=== PATIENT | male | born 1995 | race African-American/Black ===

== ENCOUNTER 2017-07-08 12:26 | Emergency (ER) | payer MEDICAID, OTHER ==
[~2017-07-08] VITALS: Ht 190.5 cm; Wt 122.7 kg
[2017-07-08 12:26] VITALS: BP 142/62
== END 2017-07-08 15:53 | disposition left against medical advice (07) ==
LOC: M ED 12:26
DX: R21 Rash and other nonspecific skin eruption (principal); Z53.21 Procedure and treatment not carried out due to patient leaving prior to being seen by health care provider

== ENCOUNTER → 2017-09-25 | Outpatient (REF) | payer OTHER ==
[2017-09-25 21:54] LABS: CHLAMYDIA DNA AMPLIFICATION NEGATIVE (NEGATIVE); GC DNA AMPLIFICATION NEGATIVE (NEGATIVE)
== END ==
LOC: M LAB REF 16:54
DX: R30.0 Dysuria (principal)
CPT/HCPCS: 87591

== ENCOUNTER → 2017-09-29 | Outpatient (REF) | payer OTHER ==
[2017-09-29 21:32] LABS: HIV 1&2 SCREEN CENTAUR NEGATIVE (NEGATIVE)
[2017-09-29 22:12] LABS: CHLAMYDIA DNA AMPLIFICATION NEGATIVE (NEGATIVE); GC DNA AMPLIFICATION NEGATIVE (NEGATIVE)
[2017-10-01 10:14] LABS: HSV TYPE I IgG SPECIFIC 1.03 index (0.00-0.90); HSV TYPE II IgG SPECIFIC <0.91 index (0.00-0.90)
== END ==
LOC: M SFHCPLAZ 13:22
DX: Z71.1 Person with feared health complaint in whom no diagnosis is made (principal)
CPT/HCPCS: 86695

== ENCOUNTER 2018-08-27 15:37 | Emergency (ER) | payer OTHER ==
[~2018-08-27] VITALS: Ht 190.5 cm; Wt 120.5 kg
[2018-08-27 15:37] VITALS: BP 144/65
[2018-08-27] MEDS ORDERED: VENTAER (15:41)
== END 2018-08-27 16:50 | disposition home or self-care (01) ==
LOC: M ED 15:37
DX: J45.909 Unspecified asthma, uncomplicated (principal); Z79.899 Other long term (current) drug therapy

== ENCOUNTER 2019-02-03 16:49 | Emergency (ER) | payer OTHER ==
[~2019-02-03] VITALS: Ht 190.5 cm; Wt 126.4 kg
[~2019-02-03 16:49] MED LIST: VENTAER
[2019-02-03 18:52] LABS: BASO # 0.1 10^3/uL (0.0-0.2); BASO % 0.5 % (0.0-1.0); EOS # 0.2 10^3/uL (0.0-0.50); EOS % 2.1 % (0.0-3.0); HEMATOCRIT 45.8 % (42.0-52.0); HEMOGLOBIN 15.8 g/dl (13.5-17.5); LYMPH # 2.4 10^3/uL (1.5-6.5); LYMPH % 25.1 % (24.0-44.0); MEAN CORPUSCULAR HGB CONC 34.5 g/dl (32.0-36.5); MEAN CORPUSCULAR VOLUME 84.2 fl (80.0-96.0); MONO # 0.8 10^3/uL (0.0-0.8); MONO % 7.9 % (0.0-5.0); NEUTROPHILS # 6.1 10^3/uL (1.8-7.7); NEUTROPHILS % 64.2 % (36.0-66.0); PLATELET COUNT, AUTOMATED 264 10^3/uL (150-450); RED BLOOD COUNT 5.44 10^6/uL (4.30-6.10); WHITE BLOOD COUNT 9.5 10^3/uL (4.0-10.0)
--- NOTE | 2019-02-03 19:25 | REP ---
PA and lateral chest: Comparison is 06/09/2016. The lung wilder are clear. The cardiac size is normal. The clair, mediastinum, and skeletal structures are unremarkable. Impression: Negative PA and lateral chest. There is no interval change. Electronically Signed by David Medina MD 02/03/2019 07:17 P
[2019-02-03 19:26] LABS: ALBUMIN 4.1 GM/DL (3.2-5.2); ALT/SGPT 32 U/L (12-78); BILIRUBIN,DIRECT 0.2 MG/DL (0.0-0.2); BLOOD UREA NITROGEN 15 MG/DL (7-18); CALCIUM LEVEL 9.1 MG/DL (8.5-10.1); CARBON DIOXIDE LEVEL 30 MEQ/L (21-32); CHLORIDE LEVEL 105 MEQ/L (98-107); GLOMERULAR FILTRATION RATE > 60.0 (>60); GLUCOSE, FASTING 73 MG/DL (70-100); LIPASE 129 U/L (73-393); POTASSIUM SERUM 4.2 MEQ/L (3.5-5.1); SODIUM LEVEL 139 MEQ/L (136-145); TOTAL PROTEIN 7.3 GM/DL (6.4-8.2)
--- NOTE | 2019-02-03 20:13 | REPVR ---
EXAM: US Abdomen Limited, Right Upper Quadrant EXAM DATE/TIME: 02/03/2019 7:36 PM CLINICAL HISTORY: 23 years old, male; Abdominal pain; Additional info: Ruq/right chest pain TECHNIQUE: Imaging protocol: Real-time ultrasound of the abdomen with image documentation. Examination was focused on the right upper quadrant. COMPARISON: No relevant prior studies available. FINDINGS: Liver: Normal. No masses. Gallbladder: Gallbladder is contracted. Of note, the patient was not fasting. Negative sonographic Lynn's sign. Common bile duct: Common bile duct measures 2.5 mm. Pancreas: Pancreas largely obscured by overlying bowel gas Right kidney: Right kidney measures 11.7 x 6.8 x 6.7 cm. IMPRESSION: Gallbladder is contracted. Of note, the patient was not fasting. Negative sonographic Lynn's sign. Electronically signed by: Dawson Sorto On 02/03/2019 20:13:08 PM
[2019-02-03 21:00] VITALS: BP 141/80
--- NOTE | 2019-02-03 21:47 | ECGEPIP ---
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
== END 2019-02-03 21:02 | disposition home or self-care (01) ==
LOC: M ED 19:17
DX: R07.89 Other chest pain (principal); I45.4 Nonspecific intraventricular block; J45.909 Unspecified asthma, uncomplicated; Z87.891 Personal history of nicotine dependence

== ENCOUNTER → 2019-08-20 | Outpatient (REF) | payer OTHER ==
[2019-08-20 18:16] LABS: BASO % 0.6 % (0.0-1.0); EOS # 0.1 10^3/uL (0.0-0.5); EOS % 1.8 % (0.0-3.0); HEMATOCRIT 48.2 % (42.0-52.0); HEMOGLOBIN 15.8 g/dl (13.5-17.5); LYMPH # 2.2 10^3/uL (1.5-5.0); LYMPH % 33.7 % (24.0-44.0); MEAN CORPUSCULAR HEMOGLOBIN 27.5 pg (27.0-33.0); MEAN CORPUSCULAR HGB CONC 32.8 g/dl (32.0-36.5); MONO # 0.5 10^3/uL (0.0-0.8); MONO % 7.5 % (0.0-5.0); NEUTROPHILS # 3.7 10^3/uL (1.5-8.5); NEUTROPHILS % 56.2 % (36.0-66.0); PLATELET COUNT, AUTOMATED 261 10^3/uL (150-450); RED BLOOD COUNT 5.74 10^6/uL (4.30-6.10); WHITE BLOOD COUNT 6.5 10^3/uL (4.0-10.0)
[2019-08-20 18:28] LABS: ALBUMIN 4.4 GM/DL (3.2-5.2); ALT/SGPT 42 U/L (12-78); BILIRUBIN,TOTAL 2.5 MG/DL (0.2-1.0); BLOOD UREA NITROGEN 17 MG/DL (7-18); CARBON DIOXIDE LEVEL 27 MEQ/L (21-32); CHLORIDE LEVEL 105 MEQ/L (98-107); CHOLESTEROL LEVEL 178 MG/DL (<200); CHOLESTEROL RISK RATIO 2.781 (<5); CREATININE FOR GFR 0.94 MG/DL (0.70-1.30); FREE T4 0.97 NG/DL (0.76-1.46); GLOMERULAR FILTRATION RATE > 60.0 (>60); GLUCOSE, FASTING 95 MG/DL (70-100); HDL CHOLESTEROL 64 MG/DL (>40); LDL CHOLESTEROL 104 MG/DL (<100); NON-HDL-C 114 MG/DL; POTASSIUM SERUM 4.5 MEQ/L (3.5-5.1); RHEUMATOID FACTOR QUANT 21.8 IU/ML (<15.0); SODIUM LEVEL 140 MEQ/L (136-145); TOTAL PROTEIN 6.9 GM/DL (6.4-8.2); TRIGLYCERIDES LEVEL 51 MG/DL (<150)
[2019-08-20 18:35] LABS: TOTAL 25(OH) VITAMIN D 33.5 NG/ML (30.0-100.0)
[2019-08-20 18:47] LABS: ERYTHROCYTE SEDIMENTATION RATE 3 mm/hr (0-15)
[2019-08-23 14:07] LABS: ANTINUCLEAR ANTIBODIES DIRECT Negative (Negative)
== END ==
LOC: M LAB REF 16:38
PROVIDERS: ATTEND Physician Assistant
DX: Z83.49 Family history of other endocrine, nutritional and metabolic diseases (principal); M25.50 Pain in unspecified joint; J45.990 Exercise induced bronchospasm; E66.09 Other obesity due to excess calories; Z68.34 Body mass index [BMI] 34.0-34.9, adult; Z00.01 Encounter for general adult medical examination with abnormal findings

== ENCOUNTER → 2019-09-23 | Outpatient (REF) | payer OTHER ==
[2019-09-23 17:23] LABS: BILIRUBIN,DIRECT 0.3 MG/DL (0.0-0.2); BILIRUBIN,TOTAL 1.6 MG/DL (0.2-1.0)
[2019-09-23 17:46] LABS: HEPATITIS B SURFACE ANTIGEN NEGATIVE (NEGATIVE)
[2019-09-24 09:22] LABS: HEPATITIS B SURFACE ANTIBODY POSITIVE (POSITIVE)
[2019-09-24 10:01] LABS: HEPATITIS C VIRUS ABY INDEX < 0.0 INDEX (<0.8)
[2019-09-25 08:14] LABS: HEPATITIS A IgG TOTAL Positive (Negative); HEPATITIS B CORE ANTIBODY IGG Negative (Negative)
== END ==
LOC: M LAB REF 16:25
PROVIDERS: ATTEND Physician Assistant
DX: R17 Unspecified jaundice (principal)

== ENCOUNTER → 2019-09-28 | Outpatient (REF) | payer OTHER ==
[2019-09-28 17:35] LABS: C REACTIVE PROTEIN QUANTITATIV < 0.30 MG/DL (0.00-0.30); RHEUMATOID FACTOR QUANT 27.2 IU/ML (<15.0); TOTAL PROTEIN 6.8 GM/DL (6.4-8.2)
[2019-09-30 08:58] LABS: ALBUMIN 4.43 GM/DL (3.29-5.55); ALBUMIN % 65.2 % (55.8-66.1); ALPHA-1-GLOBULIN % 3.6 % (2.9-4.9); ALPHA-1-GLOBULINS 0.24 GM/DL (0.17-0.41); ALPHA-2-GLOBULINS 0.64 GM/DL (0.42-0.99); ALPHA-2-GLOBULINS % 9.4 % (7.1-11.8); BETA-1-GLOBULINS 0.41 GM/DL (0.28-0.60); BETA-2-GLOBULINS 0.33 GM/DL (0.19-0.55); BETA-2-GLOBULINS % 4.8 % (3.2-6.5); GAMMA GLOBULINS 0.75 GM/DL (0.65-1.58)
[2019-10-01 00:06] LABS: ANGIOTENSIN 1 CONVERTING ENZYM 45 U/L (14-82); CYCLIC CITRULLINATED PEPTIDE 12 units (0-19)
== END ==
LOC: M SFHCRHEU 09:50
PROVIDERS: ATTEND Internal Medicine
DX: M25.50 Pain in unspecified joint (principal); R76.8 Other specified abnormal immunological findings in serum

== ENCOUNTER → 2019-10-01 | Outpatient (CLI) | payer OTHER ==
--- NOTE | 2019-10-01 15:35 | REP ---
Clinical: Kyphosis. Technique: AP, lateral, swimmers views of the thoracic spine. Findings: Normal alignment and kyphosis noted. No acute fracture / compression injury or subluxation. Mild scoliosis in the frontal projection cannot be excluded. Lateral view suggests minimal multilevel degenerative changes with subtle endplate sclerosis and minimal spurring. Impression: Minimal degenerative changes cannot be excluded and should be correlated with physical examination and history. Electronically Signed by Spike Dodd MD 10/01/2019 03:26 P
--- NOTE | 2019-10-01 15:37 | REP ---
Clinical: Polyarthralgia. Technique: AP, lateral, bilateral oblique and sunrise views of the right and left knee. Findings: Osseous structures, joint spaces, and surrounding soft tissues appear relatively normal for age. No acute fracture dislocation. No definite effusion. No significant arthritic findings. Impression: Essentially symmetric age-appropriate bilateral knee radiographs. Electronically Signed by Spike Dodd MD 10/01/2019 03:28 P
--- NOTE | 2019-10-01 15:38 | REP ---
Clinical: Nontraumatic hip pain. Technique: Frontal view of the pelvis with neutral and frog lateral views of the right and left hip. Findings: Osseous structures and joint spaces are intact and relatively normal. Hip joints appear symmetric on frontal pelvic radiograph. No acute fracture or dislocation. No evidence for healed injury. Very minimal symmetric increased sclerosis to the acetabular roofs is nonspecific. Surrounding soft tissues are unremarkable. Impression: Symmetric bilateral hip radiograph series. Electronically Signed by Spike Dodd MD 10/01/2019 03:30 P
== END ==
LOC: M RAD 14:35
PROVIDERS: ATTEND Internal Medicine
DX: M40.204 Unspecified kyphosis, thoracic region (principal); M25.50 Pain in unspecified joint

== ENCOUNTER 2019-12-29 11:32 | Emergency (ER) | payer OTHER ==
[~2019-12-29] VITALS: Ht 190.5 cm; Wt 130.2 kg
[2019-12-29 11:33] VITALS: BP 139/67
--- NOTE | 2019-12-29 13:47 | REP ---
LEFT WRIST, FOUR VIEWS: There is no evidence of an acute fracture, dislocation or intrinsic bone disease. IMPRESSION: No fracture or dislocation. Electronically Signed by David Prather MD 12/29/2019 04:44 P
== END 2019-12-29 12:59 | disposition home or self-care (01) ==
LOC: M ED 11:32
DX: M25.532 Pain in left wrist (principal)

== ENCOUNTER → 2020-09-05 | Outpatient (CLI) | payer SELFPAY | LOC: M LABSMTC 09:49 | PROVIDERS: ATTEND Pediatrics | DX: Z20.822 Contact with and (suspected) exposure to COVID-19 (principal) ==

== ENCOUNTER → 2020-11-08 | Outpatient (REF) | payer OTHER | LOC: M LAB REF 13:14 | PROVIDERS: ATTEND Physician Assistant | DX: K52.9 Noninfective gastroenteritis and colitis, unspecified (principal) ==

== ENCOUNTER → 2020-11-29 | Outpatient (REF) | payer OTHER ==
[2020-11-29 16:54] LABS: BASO % 0.4 % (0.0-1.0); EOS # 0.2 10^3/uL (0.0-0.5); EOS % 1.9 % (0.0-3.0); HEMATOCRIT 49.3 % (42.0-52.0); HEMOGLOBIN 16.6 g/dl (13.5-17.5); LYMPH # 2.5 10^3/uL (1.5-5.0); MEAN CORPUSCULAR HEMOGLOBIN 27.4 pg (27.0-33.0); MEAN CORPUSCULAR HGB CONC 33.7 g/dl (32.0-36.5); MEAN CORPUSCULAR VOLUME 81.4 fl (80.0-96.0); MONO # 0.6 10^3/uL (0.0-0.8); MONO % 6.9 % (2.0-8.0); NEUTROPHILS # 5.9 10^3/uL (1.5-8.5); NEUTROPHILS % 63.6 % (36.0-66.0); PLATELET COUNT, AUTOMATED 265 10^3/uL (150-450); RED BLOOD COUNT 6.06 10^6/uL (4.30-6.10); WHITE BLOOD COUNT 9.3 10^3/uL (4.0-10.0)
[2020-11-29 17:57] LABS: ALBUMIN 4.1 GM/DL (3.2-5.2); ALT/SGPT 25 U/L (12-78); AMYLASE 59 U/L (25-115); BILIRUBIN,TOTAL 0.9 MG/DL (0.2-1.0); BLOOD UREA NITROGEN 13 MG/DL (7-18); CALCIUM LEVEL 9.5 MG/DL (8.5-10.1); CARBON DIOXIDE LEVEL 28 MEQ/L (21-32); CHLORIDE LEVEL 106 MEQ/L (98-107); CREATININE FOR GFR 0.84 MG/DL (0.70-1.30); GLOMERULAR FILTRATION RATE > 60.0 (>60); GLUCOSE, FASTING 90 MG/DL (70-100); LIPASE 78 U/L (73-393); POTASSIUM SERUM 4.8 MEQ/L (3.5-5.1); SODIUM LEVEL 139 MEQ/L (136-145); TOTAL PROTEIN 7.2 GM/DL (6.4-8.2)
== END ==
LOC: M LAB REF 15:57
PROVIDERS: ATTEND Physician Assistant
DX: R53.83 Other fatigue (principal); K52.9 Noninfective gastroenteritis and colitis, unspecified

== ENCOUNTER 2020-12-31 07:54 | Emergency (ER) | payer OTHER ==
[~2020-12-31] VITALS: Ht 190.5 cm; Wt 148.5 kg
[2020-12-31 07:54] VITALS: BP 161/84
[2020-12-31] MEDS ORDERED: ONDA4TAB6 PO (09:21)
[2020-12-31] MEDS ORDERED: ONDANSETRON 4 MG ORAL DISINTEGRATING TAB PO ONE (09:25)
[2020-12-31] MEDS ORDERED: IBUPROFEN 600MG TAB PO ONE (09:25)
[2021-01-01] MEDS ORDERED: GNPLIQ60 PO (20:51)
[2021-01-01] MEDS ORDERED: IBUP200C29 PO (20:51)
--- NOTE | 2021-01-06 08:07 | ED PDOC ---
Post-Departure Follow-Up radiology repor tfaxed to Aster Cordova MD January 06, 2021 08:07
== END 2020-12-31 09:30 | disposition home or self-care (01) ==
LOC: M ED 07:54
DX: T50.B95A Adverse effect of other viral vaccines, initial encounter (principal); Y92.9 Unspecified place or not applicable; Y93.9 Activity, unspecified; J02.9 Acute pharyngitis, unspecified; R09.81 Nasal congestion; J45.909 Unspecified asthma, uncomplicated
CPT/HCPCS: 87880; 99283; Q0162; U0003

== ENCOUNTER 2021-01-01 20:43 | Inpatient (IN) | payer OTHER ==
[~2021-01-01] VITALS: Ht 190.5 cm; Wt 148.4 kg
[~2021-01-01 20:43] MED LIST changes: +ONDA4TAB6 PO
[2021-01-01] MEDS ORDERED: GNPLIQ60 PO (20:51)
[2021-01-01] MEDS ORDERED: IBUP200C29 PO (20:51)
[2021-01-01] MEDS ORDERED: ACETAMINOPHEN 500 MG TAB PO ONE (22:45)
[2021-01-01] MEDS ORDERED: NS 1,000 ML IV ONE (22:45)
--- NOTE | 2021-01-01 23:39 | REPVR ---
PROCEDURE INFORMATION: Exam: XR Chest Exam date and time: 01/01/2021 11:00 PM Age: 25 years old Clinical indication: Shortness of breath; Additional info: Covid +, chest discomfort and short of breath TECHNIQUE: Imaging protocol: XR of the chest. Views: 1 view. COMPARISON: CR Chest, 2 view PA, Lat 06/09/2016 2:14 PM FINDINGS: Lungs: Degree of inflation of the lungs is normal. No evidence of pulmonary edema. Patchy multifocal right basilar parenchymal airspace opacity suggests pneumonia. No suspicious parenchymal lung mass. Pleural spaces: No pleural effusion or pneumothorax. Heart/Mediastinum: Heart and mediastinal contours are unremarkable. No mediastinal adenopathy or hilar mass. Bones/joints: Bony structures and extrathoracic soft tissues are unremarkable for age. IMPRESSION: Multifocal right basilar patchy airspace opacities suggesting multifocal pneumonia Electronically signed by: Itz Craft On 01/01/2021 23:38:54 PM
[2021-01-01 23:54] LABS: INR 1.08; PROTHROMBIN TIME 14.2 SECONDS (12.5-14.3)
[2021-01-01 23:55] LABS: PARTIAL THROMBOPLASTIN TIME 34.5 SECONDS (24.2-38.5)
[2021-01-01 23:57] LABS: D-DIMER QUANT 1028.07 ng/ml (<500)
[2021-01-02] VITALS (7 sets, daily range): BP systolic 129–151; BP diastolic 67–79; O2SAT 93–94
[2021-01-02 00:05] LABS: BASO % 0.2 % (0.0-1.0); HEMATOCRIT 46.2 % (42.0-52.0); HEMOGLOBIN 15.6 g/dl (13.5-17.5); MEAN CORPUSCULAR HEMOGLOBIN 27.3 pg (27.0-33.0); MEAN CORPUSCULAR HGB CONC 33.8 g/dl (32.0-36.5); MEAN CORPUSCULAR VOLUME 80.8 fl (80.0-96.0); MONO # 0.6 10^3/uL (0.0-0.8); MONO % 6.8 % (2.0-8.0); NEUTROPHILS # 6.8 10^3/uL (1.5-8.5); NEUTROPHILS % 80.3 % (36.0-66.0); PLATELET COUNT, AUTOMATED 196 10^3/uL (150-450); RED BLOOD COUNT 5.72 10^6/uL (4.30-6.10); WHITE BLOOD COUNT 8.5 10^3/uL (4.0-10.0)
[2021-01-02 00:06] LABS: BLOOD UREA NITROGEN 10 MG/DL (7-18); C REACTIVE PROTEIN QUANTITATIV 5.69 MG/DL (0.00-0.30); CALCIUM LEVEL 8.2 MG/DL (8.5-10.1); CARBON DIOXIDE LEVEL 28 MEQ/L (21-32); CHLORIDE LEVEL 100 MEQ/L (98-107); CK-MB VALUE MASS < 1.0 NG/ML (<3.6); CPK CREATINE PHOSPHOKINASE 215 U/L (39-308); CREATININE FOR GFR 1.22 MG/DL (0.70-1.30); GLOMERULAR FILTRATION RATE > 60.0 (>60); GLUCOSE, FASTING 103 MG/DL (70-100); MB/CK RELATIVE INDEX 0.47 (< OR =4); POTASSIUM SERUM 3.9 MEQ/L (3.5-5.1); SODIUM LEVEL 134 MEQ/L (136-145); TROPONIN I < 0.02 NG/ML (< 0.10)
[2021-01-02 00:30] LABS: ERYTHROCYTE SEDIMENTATION RATE 21 mm/hr (0-15)
[2021-01-02] MEDS ORDERED: IBUPROFEN 800 MG TAB PO ONE (00:45)
--- NOTE | 2021-01-02 01:01 | REPVR ---
PROCEDURE INFORMATION: Exam: CTA Chest With Contrast Exam date and time: 01/01/2021 11:47 PM Age: 25 years old Clinical indication: Shortness of breath; Patient HX: Covid pos, unable to hold breath; Additional info: Shortness of breath, covid +, 92% on ra, RO pe TECHNIQUE: Imaging protocol: Computed tomographic angiography of the chest with contrast. 3D rendering (Not supervised by radiologist): MIP and/or 3D reconstructed images were created by the technologist. Radiation optimization: All CT scans at this facility use at least one of these dose optimization techniques: automated exposure control; mA and/or kV adjustment per patient size (includes targeted exams where dose is matched to clinical indication); or iterative reconstruction. Contrast material: ISO; Contrast volume: 75 ml; Contrast route: INTRAVENOUS (IV); COMPARISON: CR Chest, 1 view 01/01/2021 10:51 PM FINDINGS: Pulmonary arteries: Peripheral pulmonary artery evaluation limited by cardiac and respiratory motion artifact. Central pulmonary arteries show no intraluminal defect suggestive of clot. Aorta: No thoracic aortic aneurysm or dissection. Lungs: Pulmonary vascular/interstitial pattern does not suggest active pulmonary edema. Multifocal ill-defined airspace opacities in both lungs, most confluent at the medial right lung base. No central endobronchial lesion. Pleural spaces: No pneumothorax. Miniscule dependent bilateral pleural effusions Heart: No overt cardiac enlargement or abnormal volume of pericardial fluid. Mediastinal space: Residual thymic tissue is present in the anterior mediastinum. Lymph nodes: No enlarged mediastinal lymph nodes. Bones/joints: Bony structures show no acute fracture or destructive process. Soft tissues: No asymmetric abnormality of the extrathoracic soft tissues. IMPRESSION: 1. No evidence of acute, central pulmonary embolus. Peripheral pulmonary arterial evaluation is limited by cardiac and respiratory motion artifact. 2. Miniscule bilateral pleural effusions and multifocal bilateral ill-defined airspace opacity suggesting an atypical infectious or inflammatory process. COVID-19 pneumonia could give this appearance. Electronically signed by: Itz Craft On 01/02/2021 01:01:04 AM
[2021-01-02] MEDS ORDERED: MOM 30ML SUSPENSION UDC PO PRN (01:25)
[2021-01-02] MEDS ORDERED: MAALOX 30 ML SUSP *UDC PO PRN (01:25)
[2021-01-02] MEDS ORDERED: COLDLIQ8 PO (03:10)
[2021-01-02] MEDS ORDERED: IBUP-1730 PO (03:10)
[2021-01-02] MEDS ORDERED: REMDESIVIR 200 MG in NS 250 ML IV ONE (04:30)
--- NOTE | 2021-01-02 04:37 | HPEPDOC ---
[facility] Medical History & Physical Date of Admission January 02, 2021 Date of Service: January 02, 2021 Attending Physician: CHRIS VILLANUEVA MD History and Physical CHIEF COMPLAINT: Shortness of breath, fever, tested positive for COVID HISTORY OF PRESENT ILLNESS: Patient is a 25-year-old male who states that this Friday he received his first dose of Moderna COVID vaccine and was doing fine after which, the next day he woke up with fevers, shortness of breath, chills and nausea. He got himself tested for COVID and came back positive for COVID on . The patient decided to quarantine at home and states that his temperatures were staying higher with a maximum temperature being 103.7F. He continued to take Tylenol for his fever which would work for a few hours and then the fever would spike right back. The patient states he called his pharmacist yesterday because the symptoms were not resolving and Getting worse who advised him to go to the hospital. In the ED patient was having a fever of 102.2 orally, pulse of 97, respiratory rate of 30 and a blood pressure 138/74 and a pulse oximetry showing 91% on room air. Patient was immediately put on contact isolation started on 2 L of oxygen while on nasal cannula and was decided to be admitted to the Covid floor here at [facility]. When I saw the patient he was comfortable on 2 L of oxygen, still was a little nauseated and actively sweating. He denies any vision changes, chest pain, cough, dizziness, lightheadedness, diarrhea, constipation, numbness or tingling, Calf pain. PAST MEDICAL HISTORY: None PAST SURGICAL HISTORY: None as per the patient SOCIAL HISTORY: Tobacco use: Former smoker quit 4 years ago. Smoked for 10 years about 6 cigarettes per day ETOH: 3-4 beers 3-4 times a week Illicit drug use: Never Tattoos done unprofessionally: None IV drug use: None FAMILY HISTORY: Father: Hypothyroidism Mother: Graves' disease Unexpected deaths due to medical reasons: None ALLERGIES: Please see below. REVIEW OF SYSTEMS: CONSTITUTIONAL: Reports fevers, chills. Denies unintentional weight loss, night sweats. HEENT: Denies Ear pain, any lumps or bumps, sore throat, runny nose. CARDIOVASCULAR: Denies chest pain, orthopnea, PND. RESPIRATORY: Reports shortness of breath, Denies cough, pleuritic pain. GASTROINTESTINAL: Denies nausea vomiting constipation diarrhea. GENITOURINARY: Denies burning in urination. SKIN: Denies any bleeding or bruising. Reports redness and swelling of the right hand. MUSCULOSKELETAL: Denies any joint pain or stiffness. NEUROLOGICAL: Denies paresthesias, numbness, loss of bowel or. PSYCHIATRIC: Denies anxiety, depression. HEMATOLOGIC/LYMPHATIC: And his bleeding bruising, lumps or bumps. HOME MEDICATIONS: Please see below. PHYSICAL EXAMINATION: VITAL SIGNS: Temperature 102.2, pulse 97, respiratory rate 30, blood pressure 138/74, pulse oximetry 96 on 2 L oxygen. GENERAL APPEARANCE: Patient looks in moderate distress, because of shortness of breath and excessive sweatiness. HEENT: Atraumatic normocephalic, moist mucous membranes, PERRLA, EOMI, no conju nctival pallor, no scleral icterus. CARDIOVASCULAR: Normal rate, regular rhythm S1-S2 heard with no murmurs. LUNGS: Clear to auscultation bilaterally, no wheezing/crackles. ABDOMEN: Nondistended nontender, no organomegaly, hyperactive bowel sounds. MUSCULOSKELETAL: No joint deformity/stiffness. EXTREMITIES: Good volume pulse, no pedal edema. NEUROLOGICAL: 5/5 motor strength, sensations intact cranial nerves II to 12 intact PSYCHIATRIC: Normal affect and mood. LABORATORY DATA: See below. IMAGING: Chest x-ray done on Jan 01 2021:IMPRESSION: Multifocal right basilar patchy airspace opacities suggesting multifocal pneumonia CT angiography done on 01/01/2021:1. No evidence of acute, central pulmonary embolus. Peripheral pulmonary arterial evaluation is limited by cardiac and respiratory motion artifact. 2. Miniscule bilateral pleural effusions and multifocal bilateral ill-defined airspace opacity suggesting an atypical infectious or inflammatory process. COVID-19 pneumonia could give this appearance. MICROBIOLOGY: Please see below. ASSESSMENT AND PLAN: Patient is a 25-year-old male who states that this Friday he received his first dose of Moderna COVID vaccine and was doing fine when the next day he woke up with fevers, shortness of breath, chills and nausea. He got himself tested for COVID and came back positive on . The patient decided to quarantine at home and states that his temperatures were staying higher with a maximum temperature being 103.7F. He continued to take Tylenol for his fever which would work for a few hours and then the fever would spike right back. The patient states he called his pharmacist yesterday because the symptoms were not resolving and Getting worse who advised him to go to the hospital. In the ED patient was having a fever of 102.2 orally, pulse of 97, respiratory rate of 30 and a blood pressure 138/74 and a pulse oximetry showing 91% on room air. Patient was immediately put on contact isolation started on 2 L of oxygen while on nasal cannula and was decided to be admitted to the Covid floor here at [facility] . #Covid pneumonia: -Based on the positive Covid test, x-ray findings. - Patient was put on contact isolation -Patient was put on telemetry -Continuous monitoring of I's and O's -Vitals will be monitored every 4 hours. Oxygen therapy orders were put in to maintain a saturation of about 90%. -All inflammatory markers were ordered. -To get the fever under control acetaminophen was ordered as needed. Also, given thousand milligram dose of Tylenol and 800 mg of ibuprofen on arrival in the ED. -Patient was given a bolus of fluids. -CT angio was ordered. -Patient's D dimers were elevated to 1028 , fibrinogen 546 -Remdesvir was given as well. #Hypercoagulability of Covid: -Since the d-dimer was less than 5000 patient was started on enoxaparin 40 mg subcutaneously daily. DVT prophylaxis- enoxaparin 40 mg subcutaneously daily. DISPOSITION: Pending improvement. Most likely 2 hospital days. - Vital Signs Vital Signs Date Time Temp Pulse Resp B/P (MAP) Pulse Ox O2 Delivery O2 Flow Rate FiO2 01/02/21 03:10 99.6 78 14 141/72 (95) 99 Room Air 01/02/21 00:00 2.0 Laboratory Data Labs 24H Laboratory Tests 2 01/01/21 23:23: Immature Granulocyte % (Auto) 0.7, Neutrophils (%) (Auto) 80.3H, Lymphocytes (%) (Auto) 12.0L, Monocytes (%) (Auto) 6.8, Eosinophils (%) (Auto) 0.0, Basophils (%) (Auto) 0.2, Neutrophils # (Auto) 6.8, Lymphocytes # (Auto) 1.0L, Monocytes # (Auto) 0.6, Eosinophils # (Auto) 0.0, Basophils # (Auto) 0.0, Nucleated Red Blood Cells % (auto) 0.0, Erythrocyte Sedimentation Rate 21H, Prothrombin Time 14.2H, Prothromb Time International Ratio 1.08, Activated Partial Thromboplast Time 34.5, Fibrinogen 546H, D-Dimer, Quantitative 1028.07H, Anion Gap 6L, Glomerular Filtration Rate > 60.0, Lactic Acid Level 1.5, Calcium Level 8.2L, Total Creatine Kinase 215, Creatine Kinase MB < 1.0, Creatine Kinase MB Relative Index 0.47, Troponin I < 0.02, C-Reactive Protein, Quantitative 5.69H CBC/BMP Laboratory Tests 01/01/21 23:23 Microbiology Microbiology 01/01/21 Blood Culture, Received Pending 01/01/21 Blood Culture, Received Pending 01/01/21 Respiratory Virus Panel (PCR) ([facility]) - Final, Complete SARS-CoV-2 (COVID 19) Home Medications Scheduled PRN Dm/Acetaminophen/Doxylamine (Nighttime Cold-Flu Liquid) 710 Ml Liquid, 30 ML PO Q6H PRN for COUGH Ibuprofen (Ibuprofen) 200 Mg Tablet, 400 MG PO Q6H PRN for PAIN / FEVER Allergies Coded Allergies: No Known Allergies (Unverified , 02/03/19) A-FIB/CHADSVASC A-FIB History Current/History of A-Fib/PAF?: No Current PO Anticoag Therapy: No Age/Risk Factor Scoring CHADSVASC: CHADSVASC Response (Comments) Value Age Risk Factor Age < 65 years old 0 Hx of CHF No 0 Hx of HTN No 0 Hx of Stroke/TIA/or VTE No 0 Hx of Diabetes No 0 Hx of Vascular Disease No 0 Total 0 Treatment Treatment ordered: NONE Reason Anticoagulant not given: Not indicated/[id number] GME ATTESTATION GME ATTESTATION My faculty preceptor for this patient encounter was physically present during the encounter and was fully available. All aspects of the patient interview, examination, medical decision making process, and medical care plan development were reviewed and approved by the faculty preceptor. The faculty preceptor is aware and concurs with the plan as stated in the body of this note and will attest to such by his/her cosignature. ATTENDING NOTE time of service 313am Mr. Rhodes is a 25 yr old w asthma and class 3 obesity admitted for viral sepsis 2/2 COVID 19 PNA. His physical exam was remarkable for a drop in his O2 sats to 89% with exertion. Despite a qCSI score of 3 we admitted him bc he is at high risk bc of his BMI and is at risk of also developing an asthma exacerbation. rest per 's H&P Monty Bloom MD January 02, 2021 03:45 CHRIS VILLANUEVA MD January 02, 2021 07:00
[2021-01-02] MEDS: ENOXAPARIN 80MG/0.8ML SYRINGE (J1650 PER 10MG) SC SCH ×2 (05:22→17:21)
[2021-01-02] MEDS ORDERED: ALBUTEROL 90 MCG/ACT 8GM HFA INHALER INH PRN (06:15)
[2021-01-02] MEDS ORDERED: SODIUM CHLORIDE 0.9% INJ 10 ML SYR IV ONE (06:30)
[2021-01-02 08:04] LABS: INR 1.05; PROTHROMBIN TIME 13.9 SECONDS (12.5-14.3)
[2021-01-02 08:06] LABS: D-DIMER QUANT 965.65 ng/ml (<500)
[2021-01-02 08:09] LABS: ALBUMIN 3.3 GM/DL (3.2-5.2); ALT/SGPT 25 U/L (12-78); BILIRUBIN,DIRECT 0.3 MG/DL (0.0-0.2); CPK CREATINE PHOSPHOKINASE 330 U/L (39-308); FERRITIN 160 NG/ML (26-388); LDH LACTATE DEHYDROGENASE 184 U/L (87-241); TOTAL PROTEIN 7.1 GM/DL (6.4-8.2); TROPONIN I < 0.02 NG/ML (< 0.10)
[2021-01-02] MEDS: ASPIRIN 81MG ENTERIC TABLET PO SCH (08:33)
[2021-01-02] MEDS ORDERED: ENOXAPARIN 40MG/0.4ML SYRINGE (J1650 PER 10MG) SC SCH (09:00)
[2021-01-02] MEDS: ACETAMINOPHEN TAB 650MG DOSE (2X325MG) PO PRN ×3 (10:08→23:33)
[2021-01-02] MEDS: dexameTHASONE 20MG/5ML VIAL (J1100 PER 1MG) IV SCH (13:23)
--- NOTE | 2021-01-02 16:44 | IPNPDOC ---
Text Note Date of Service The patient was seen on 01/02/21. NOTE SUBJECTIVE: -No acute complaints -Significant RAMOS -On 2L NC VITAL SIGNS: Please see below GENERAL APPEARANCE: NAD HEENT: Atraumatic normocephalic, moist mucous membranes, PERRLA, EOMI, no conjunctival pallor, no scleral icterus. CARDIOVASCULAR: Normal rate, regular rhythm S1-S2 heard with no murmurs. LUNGS: Clear to auscultation bilaterally, no wheezing/crackles. ABDOMEN: Nondistended nontender, no organomegaly, hyperactive bowel sounds. MUSCULOSKELETAL: No joint deformity/stiffness. EXTREMITIES: Good volume pulse, no pedal edema. NEUROLOGICAL: 5/5 motor strength, sensations intact cranial nerves II to 12 intact PSYCHIATRIC: Normal affect and mood. LABORATORY DATA: WBC 8.5 hgb 15.6 platelet 196 ESR 21 DD 965 Cr 1.22 Na 134 K 3.9 IMAGING: Chest x-ray done on Jan 01 2021:IMPRESSION: Multifocal right basilar patchy airspace opacities suggesting multifocal pneumonia CT angiography done on 01/01/2021:1. No evidence of acute, central pulmonary embolus. Peripheral pulmonary arterial evaluation is limited by cardiac and respiratory motion artifact. 2. Miniscule bilateral pleural effusions and multifocal bilateral ill-defined airspace opacity suggesting an atypical infectious or inflammatory process. COVID-19 pneumonia could give this appearance. MICROBIOLOGY: Please see below. ASSESSMENT AND PLAN: 25 yo M with covid-19 PNA. #Covid pneumonia: -Based on the positive Covid test, x-ray findings. - Patient was put on droplet and contact isolation -Patient was put on telemetry -Oxygen therapy orders were put in to maintain a saturation of about 90%. -monitor covid-19 inflammatory labs per protocol -Acetaminophen was ordered as needed. -s/p fluids. -CT angio was negative for PE -Remdesvir, day #2 -Will start him on decadron 6mg IV daily, day #1 -enoxaparin 70 mg BID subcutaneously Hypoxemic respiratory failure 2/2 covid-19 PNA -Treatment per above -Supplemental oxygen with goal >90% Morbid obesity: -complicates care. DVT prophylaxis- enoxaparin 70 mg BID subcutaneously DISPOSITION: Pending improvement. Most likely 2 hospital days. - VS,Fishbone, I+O VS, Fishbone, I+O Laboratory Tests 01/01/21 23:23 Vital Signs Date Time Temp Pulse Resp B/P (MAP) Pulse Ox O2 Delivery O2 Flow Rate FiO2 01/02/21 10:59 101.2 01/02/21 10:05 93 17 151/79 (103) 95 Nasal Cannula 2.0 l I&O- Last 24 Hours up to 6 AM 01/02/21 06:00 Intake Total 1000 ml Output Total 0 ml Balance 1000 ml REYNA PAGE MD January 02, 2021 11:28
[2021-01-02] MEDS: BENZONATATE 100 MG CAP PO PRN (20:48)
--- NOTE | 2021-01-02 21:33 | ECGEPIP ---
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
[2021-01-03] VITALS: O2SAT 95
[2021-01-03 04:00] VITALS: O2SAT 93
[2021-01-03] MEDS ORDERED: REMDESIVIR 100 MG in NS 250 ML IV SCH (05:00)
[2021-01-03 06:00] VITALS: BP 136/68
[2021-01-03] MEDS ORDERED: SODIUM CHLORIDE 0.9% INJ 10 ML SYR IV SCH (06:00)
[2021-01-03] MEDS: ENOXAPARIN 80MG/0.8ML SYRINGE (J1650 PER 10MG) SC SCH (06:10)
[2021-01-03] MEDS ORDERED: COMBIVENT RESPIMAT 100-20MCG INHALER 4GM INH PRN ×2 (06:20→06:40)
[2021-01-03] MEDS: ACETAMINOPHEN TAB 650MG DOSE (2X325MG) PO PRN (06:27)
[2021-01-03] MEDS: BENZONATATE 100 MG CAP PO PRN (06:27)
[2021-01-03 07:22] LABS: BASO % 0.1 % (0.0-1.0); HEMATOCRIT 43.5 % (42.0-52.0); HEMOGLOBIN 14.8 g/dl (13.5-17.5); LYMPH % 14.2 % (24.0-44.0); MEAN CORPUSCULAR HEMOGLOBIN 26.9 pg (27.0-33.0); MEAN CORPUSCULAR VOLUME 79.1 fl (80.0-96.0); MONO # 0.7 10^3/uL (0.0-0.8); NEUTROPHILS # 5.3 10^3/uL (1.5-8.5); NEUTROPHILS % 75.3 % (36.0-66.0); PLATELET COUNT, AUTOMATED 195 10^3/uL (150-450)
[2021-01-03] MEDS ORDERED: VENTAER INH (07:31)
[2021-01-03] MEDS: dexameTHASONE 20MG/5ML VIAL (J1100 PER 1MG) IV SCH (07:31)
[2021-01-03] MEDS ORDERED: ACET1TAB55 PO (07:31)
[2021-01-03] MEDS ORDERED: BENZ-18 PO (07:31)
[2021-01-03] MEDS: ASPIRIN 81MG ENTERIC TABLET PO SCH (07:31)
[2021-01-03 07:33] LABS: INR 1.04; PROTHROMBIN TIME 13.8 SECONDS (12.5-14.3)
[2021-01-03 07:34] LABS: PARTIAL THROMBOPLASTIN TIME 37.3 SECONDS (24.2-38.5)
--- NOTE | 2021-01-03 07:46 | DS.PDOC ---
Discharge Summary General Date of Admission January 02, 2021 at 01:25 Date of Discharge 01/03/2021 Attending Physician: REYNA PAGE MD Discharge Summary PROCEDURES PERFORMED DURING STAY: None ADMITTING DIAGNOSES: Covid-19 PNA DISCHARGE DIAGNOSES: Covid-19 PNA Acute hypoxemic respiratory failure i/s/o covid-19 PNA, resolved Morbid obesity COMPLICATIONS/CHIEF COMPLAINT: Pneumonia Due To Covid 19 Virus. HISTORY OF PRESENT ILLNESS: 25-year-old M who recently received his first dose of Moderna COVID vaccine and was doing fine after which, the next day he woke up with fevers, shortness of breath, chills and nausea. He got himself tested for COVID and came back positi ve for COVID. The patient decided to quarantine at home and he had episodic fevers with a maximum temperature being 103.7F. He continued to take Tylenol for his fever which would work for a few hours. The patient called his pharmacist because the symptoms were not resolving and he was increasingly short of breath and was advised to present to the ED. HOSPITAL COURSE: In the ED he was febrile but normotensive with a resting pulse oximetry showing 91% on room air and desaturated on ambulation and was placed on 2L NC and admitted to medicine for covid-19 PNA. CXR was without acute pathology noted, and inflammatory markers were elevated but without a leukocytosis. He had a CTA that was negative for PE. He was started on remdesevir and decadron 6mg IV and by day 2 his hypoxemia resolved. Episodic fevers has persisted but improved and he continues with PRN tylenol. He has a dry cough but tachypnea has improved. I am now discharging home with PRN albuterol, tessalon perles and tylenol PRN, where he will continue to self isolate until symptoms resolve for 14 days. DISCHARGE MEDICATIONS: Please see below. ALLERGIES: Please see below. PHYSICAL EXAMINATION ON DISCHARGE: VITAL SIGNS: Please see below. GENERAL APPEARANCE: NAD, obese HEENT: Atraumatic normocephalic, moist mucous membranes, PERRLA, EOMI, no conjunctival pallor, no scleral icterus. CARDIOVASCULAR: Normal rate, regular rhythm S1-S2 heard with no murmurs. LUNGS: Clear to auscultation bilaterally, no wheezing/crackles. ABDOMEN: Nondistended nontender, no organomegaly, hyperactive bowel sounds. MUSCULOSKELETAL: No joint deformity/stiffness. EXTREMITIES: Good volume pulse, no pedal edema. NEUROLOGICAL: 5/5 motor strength, sensations intact cranial nerves 2 to 12 intact PSYCHIATRIC: Normal affect and mood. LABORATORY DATA: Please see below. IMAGING: Chest x-ray done on Jan 01 2021: Multifocal right basilar patchy airspace opacities suggesting multifocal pneumonia CT angiography done on 01/01/2021: 1. No evidence of acute, central pulmonary embolus. Peripheral pulmonary arterial evaluation is limited by cardiac and respiratory motion artifact. 2. Miniscule bilateral pleural effusions and multifocal bilateral ill-defined airspace opacity suggesting an atypical infectious or inflammatory process. COVID-19 pneumonia could give this appearance. PROGNOSIS: Good ACTIVITY: As tolerated DIET: regular DISCHARGE PLAN: home with albuterol, tessalon perles, tylenol PRN with close PCP follow up, preferrably via telemed and self isolation for 14d. DISPOSITION: Home DISCHARGE INSTRUCTIONS: home with albuterol, tessalon perles, tylenol PRN with close PCP follow up, preferrably via telemed and self isolation for 14d. ITEMS TO FOLLOWUP ON ON OUTPATIENT: resolution of covid-19 illness DISCHARGE CONDITION: Stable TIME SPENT ON DISCHARGE: 45 minutes. Vital Signs/I&Os Vital Signs Date Time Temp Pulse Resp B/P (MAP) Pulse Ox O2 Delivery O2 Flow Rate FiO2 01/03/21 06:00 100.5 75 18 136/68 (90) 93 Room Air 01/02/21 11:33 2.0 I&O- Last 24 Hours up to 6 AM 01/03/21 06:00 Intake Total 700 ml Balance 700 ml Laboratory Data Labs 24H Laboratory Tests 2 01/03/21 06:56: Immature Granulocyte % (Auto) 0.4, Neutrophils (%) (Auto) 75.3H, Lymphocytes (%) (Auto) 14.2L, Monocytes (%) (Auto) 10.0H, Eosinophils (%) (Auto) 0.0, Basophils (%) (Auto) 0.1, Neutrophils # (Auto) 5.3, Lymphocytes # (Auto) 1.0L, Monocytes # (Auto) 0.7, Eosinophils # (Auto) 0.0, Basophils # (Auto) 0.0, Nucleated Red Blood Cells % (auto) 0.0 CBC/BMP Laboratory Tests 01/03/21 06:56 Microbiology Microbiology 01/01/21 Blood Culture - Preliminary, Resulted No growth after 24 hours . All specim... 01/01/21 Blood Culture - Preliminary, Resulted No growth after 24 hours . All specim... 01/01/21 Respiratory Virus Panel (PCR) ([facility]) - Final, Complete SARS-CoV-2 (COVID 19) Discharge Medications Scheduled PRN Acetaminophen (Acetaminophen) 325 Mg Tablet, 650 MG PO Q4H PRN for PAIN OR FEVER Albuterol Sulfate (Ventolin Hfa) 18 Gm Hfa.aer.ad, 2 PUFF INH Q4HP PRN for SHORTNESS OF BREATH Benzonatate (Benzonatate) 100 Mg Capsule, 100 MG PO TIDP PRN for COUGH Dm/Acetaminophen/Doxylamine (Nighttime Cold-Flu Liquid) 710 Ml Liquid, 30 ML PO Q6H PRN for COUGH, (Reported) Ibuprofen (Ibuprofen) 200 Mg Tablet, 400 MG PO Q6H PRN for PAIN / FEVER, (Report ed) Allergies Coded Allergies: No Known Allergies (Unverified , 02/03/19) REYNA PAGE MD January 03, 2021 07:46
[2021-01-03 08:01] LABS: ALBUMIN 3.4 GM/DL (3.2-5.2); ALT/SGPT 26 U/L (12-78); BILIRUBIN,DIRECT 0.2 MG/DL (0.0-0.2); BILIRUBIN,TOTAL 0.9 MG/DL (0.2-1.0); CALCIUM LEVEL 8.7 MG/DL (8.5-10.1); CARBON DIOXIDE LEVEL 24 MEQ/L (21-32); CHLORIDE LEVEL 104 MEQ/L (98-107); CREATININE FOR GFR 0.84 MG/DL (0.70-1.30); GLOMERULAR FILTRATION RATE > 60.0 (>60); GLUCOSE, FASTING 129 MG/DL (70-100); MAGNESIUM LEVEL 2.2 MG/DL (1.8-2.4); NT-PRO BNP 14 PG/ML (<125); POTASSIUM SERUM 3.9 MEQ/L (3.5-5.1); SODIUM LEVEL 136 MEQ/L (136-145); TOTAL PROTEIN 7.5 GM/DL (6.4-8.2)
[2021-01-03 08:03] LABS: BLOOD UREA NITROGEN 16 MG/DL (7-18)
== END 2021-01-03 11:50 | disposition home or self-care (01) | DRG 137 ==
LOC: M ED 20:43 → M ED INP 01-02 01:25 → ENRESERV 01-02 02:10 → M 4MAIN 01-02 02:30
PROVIDERS: ADMIT Internal Medicine; ATTEND Internal Medicine
PROC: XW033E5 Introduction of Remdesivir Anti-infective into Peripheral Vein, Percutaneous Approach, New Technology Group 5 (ICD-10-PCS; principal; 2021-01-02)
PROC: 3E0333Z Introduction of Anti-inflammatory into Peripheral Vein, Percutaneous Approach (ICD-10-PCS; 2021-01-02)
DX: U07.1 COVID-19 (principal); J96.01 Acute respiratory failure with hypoxia; J12.82 Pneumonia due to coronavirus disease 2019; Z68.41 Body mass index [BMI] 40.0-44.9, adult; D68.69 Other thrombophilia; E66.01 Morbid (severe) obesity due to excess calories; Z87.891 Personal history of nicotine dependence

== ENCOUNTER → 2021-03-12 | Outpatient (CLI) | payer OTHER ==
[~2021-03-12] MED LIST changes: +ACET1TAB55 PO; +BENZ-18 PO; +COLDLIQ8 PO; +GNPLIQ60 PO; +IBUP-1730 PO; +IBUP200C29 PO; +VENTAER INH
[2021-03-12 18:59] LABS: FREE T4 0.75 NG/DL (0.76-1.46); THYROID STIMULATING HORMONE 1.23 uIU/ML (0.358-3.740)
== END ==
LOC: M LAB 18:00
PROVIDERS: ATTEND Internal Medicine Gastroenterology
DX: K58.1 Irritable bowel syndrome with constipation (principal)

== ENCOUNTER → 2022-08-20 | Outpatient (CLI) | payer OTHER ==
[~2022-08-20] MED LIST changes: +CYCL-707 PO; -GNPLIQ60 PO; +GNPLIQ67 PO; +HYDR-3363; +NAPR-837 PO
== END ==
LOC: M RAD 15:27
PROVIDERS: ATTEND Family Medicine Addiction Medicine
DX: M25.522 Pain in left elbow (principal)

== ENCOUNTER → 2022-09-06 | Outpatient (REF) | payer OTHER ==
[2022-09-06 18:34] LABS: HEMATOCRIT 45.1 % (42.0-52.0); HEMOGLOBIN 15.2 g/dl (13.5-17.5); MEAN CORPUSCULAR HEMOGLOBIN 27.7 pg (27.0-33.0); MEAN CORPUSCULAR HGB CONC 33.7 g/dl (32.0-36.5); MEAN CORPUSCULAR VOLUME 82.1 fl (80.0-96.0); PLATELET COUNT, AUTOMATED 306 10^3/uL (150-450); RED BLOOD COUNT 5.49 10^6/uL (4.30-6.10)
[2022-09-06 18:46] LABS: ERYTHROCYTE SEDIMENTATION RATE 6 mm/hr (0-15)
[2022-09-06 18:51] LABS: C REACTIVE PROTEIN QUANTITATIV < 0.40 MG/DL (<1.0)
[2022-09-06 18:52] LABS: RHEUMATOID FACTOR QUANT < 3.5 IU/ML (<14)
== END ==
LOC: M LAB REF 17:45
PROVIDERS: ATTEND Family Medicine Addiction Medicine
DX: M25.561 Pain in right knee (principal)

== ENCOUNTER 2022-09-09 09:34 | Outpatient (RCR) | payer OTHER | END 2022-09-10 | LOC: M PT 09:34 | PROVIDERS: ATTEND Family Medicine Addiction Medicine | DX: M25.522 Pain in left elbow (principal) ==

== ENCOUNTER 2022-10-04 10:00 | Outpatient (RCR) | payer OTHER | END 2022-10-08 | LOC: M PT 10:00 | PROVIDERS: ATTEND Family Medicine Addiction Medicine | DX: M25.522 Pain in left elbow (principal) ==

== ENCOUNTER → 2022-10-14 | Outpatient (CLI) | payer OTHER | LOC: M RAD 14:26 | PROVIDERS: ATTEND Family Medicine Addiction Medicine | DX: M25.561 Pain in right knee (principal) ==

== ENCOUNTER 2022-10-23 07:45 | Outpatient (RCR) | payer OTHER | END 2022-11-08 | LOC: M PT 07:45 | PROVIDERS: ATTEND Family Medicine Addiction Medicine | DX: M25.522 Pain in left elbow (principal) ==

== ENCOUNTER → 2023-11-21 | Outpatient (REF) | payer OTHER ==
[2023-11-21 18:43] LABS: HEMOGLOBIN A1c 5.3 % (4.0-6.0)
[2023-11-21 19:02] LABS: BLOOD UREA NITROGEN 21 MG/DL (9-23); CALCIUM LEVEL 9.6 MG/DL (8.5-10.1); CARBON DIOXIDE LEVEL 27 MMOL/L (20-31); CHLORIDE LEVEL 103 MMOL/L (98-107); CREATININE FOR GFR 1.02 MG/DL (0.70-1.30); GLOMERULAR FILTRATION RATE > 60.0 (>60); GLUCOSE, FASTING 92 MG/DL (60-100); POTASSIUM SERUM 4.4 MMOL/L (3.5-5.1); SODIUM LEVEL 139 MMOL/L (136-145)
[2023-11-21 19:03] LABS: FREE T4 1.07 NG/DL (0.89-1.76); THYROID STIMULATING HORMONE 2.184 uIU/ML (0.55-4.78)
== END ==
LOC: M LAB REF 17:29
PROVIDERS: ATTEND Family Medicine Addiction Medicine
DX: Z68.41 Body mass index [BMI] 40.0-44.9, adult (principal)

== ENCOUNTER 2024-01-15 11:21 | Outpatient (RCR) | payer OTHER, SELFPAY ==
[~2024-01-15 11:21] MED LIST changes: +ONDA-282 PO; -ONDA4TAB6 PO
== END 2024-02-08 ==
LOC: M PT 11:21
PROVIDERS: ATTEND Family Medicine Addiction Medicine
DX: M22.2X1 Patellofemoral disorders, right knee (principal); M22.2X2 Patellofemoral disorders, left knee

== ENCOUNTER → 2024-03-09 | Outpatient (CLI) | payer OTHER | LOC: M RAD 12:22 | PROVIDERS: ATTEND Physician Assistant | DX: S99.921A Unspecified injury of right foot, initial encounter (principal); W18.30XA Fall on same level, unspecified, initial encounter; Y92.009 Unspecified place in unspecified non-institutional (private) residence as the place of occurrence of the external cause ==

== ENCOUNTER → 2024-07-27 | Outpatient (CLI) | payer OTHER | LOC: M RAD 16:54 | PROVIDERS: ATTEND Student in an Organized Health Care Education/Training Program | DX: R05.9 Cough, unspecified (principal) ==

== ENCOUNTER → 2024-11-08 | Outpatient (CLI) | payer OTHER | LOC: M RAD 16:40 | PROVIDERS: ATTEND Family Medicine Addiction Medicine | DX: R10.9 Unspecified abdominal pain (principal) ==

== ENCOUNTER 2025-05-02 11:28 | Emergency (ER) | payer OTHER ==
[~2025-05-02] VITALS: Ht 190.5 cm; Wt 153.6 kg
[2025-05-02] MEDS ORDERED: MIRA3350 PO (16:45)
[2025-05-02] MEDS ORDERED: ANUS25SU PR (16:45)
[2025-05-02 16:48] VITALS: BP 139/84; TEMP 98.1; O2SAT 100
== END 2025-05-02 16:58 | disposition home or self-care (01) ==
LOC: M ED 11:28
DX: K62.5 Hemorrhage of anus and rectum (principal); K21.9 Gastro-esophageal reflux disease without esophagitis; F10.10 Alcohol abuse, uncomplicated; Z79.1 Long term (current) use of non-steroidal anti-inflammatories (NSAID); Z79.51 Long term (current) use of inhaled steroids; Z79.899 Other long term (current) drug therapy